=== PATIENT | male | born 1945 | race Caucasian/White ===

== ENCOUNTER 2016-05-11 09:05 | Observation (INO) | payer OTHER ==
[~2016-05-11] VITALS: Ht 177.8 cm; Wt 101.7 kg
[~2016-05-11 09:05] MED LIST: ASPIRIN325 MG PO; CRESTOR20 MG PO; IRBESARTAN150 MG PO; METOPROLOL SUCC25 MG PO; PLAVIX75 MG PO; VITAMIN D-32000 UNI2 PO
[2016-05-11 09:59] LABS: EOSINOPHIL (%) 1.6 % (0-5); EOSINOPHIL COUNT 0.1 K/uL (0-0.3); HEMATOCRIT 39.3 % (38.0-50.0); IMMATURE GRANULOCYTE (%) 0.2 % (0.0-0.7); INSTRUMENT ABS NEUTROPHIL CT 2.7 K/uL; LYMPHOCYTE COUNT 1.1 K/uL (1.0-2.8); MCH 30.6 PG (29.0-34.0); MCHC 33.1 G/DL (30.0-36.0); MCV 92.5 FL (86-99); MEAN PLAT.VOLUME 9.9 uM^3 (9.0-12.4); MONOCYTE (%) 11.9 % (3-12); MONOCYTE COUNT 0.5 K/uL (0-0.8); NEUTROPHIL (%) 61.3 % (45-76); NEUTROPHIL COUNT 2.7 K/uL (1.8-6.4); PLATELET COUNT 233 K/uL (156-360); RBC DIS.WIDTH-CV 12.6 % (11.8-14.6); RBC DIS.WIDTH-SD 42.6 % (39-53); RED BLOOD COUNT 4.25 M/uL (4.00-5.50); WHITE BLOOD COUNT 4.4 K/uL (4.1-10.2)
[2016-05-11 10:09] LABS: CHLORIDE 107 mEq/L (99-109); POTASSIUM 4.4 mEq/L (3.7-5.4); SODIUM 138 mEq/L (136-147)
[2016-05-11 10:12] LABS: GLUCOSE 100 mg/dL (70-99)
[2016-05-11 10:13] LABS: ANION GAP 7 MEQ/L (2-14)
[2016-05-11 10:14] LABS: TOTAL BILIRUBIN 0.7 mg/dL (0.0-1.0)
[2016-05-11 10:15] LABS: ALKALINE PHOSPHATASE 50 IU/L (3-129)
[2016-05-11 10:16] LABS: GFR ESTIMATE (CALCULATED) > 59 mL/min/
[2016-05-11 10:17] LABS: UREA NITROGEN (BUN) 17 mg/dL (9-23)
[2016-05-11 10:19] LABS: TROP-I INTERPRETATION NEGATIVE; TROPONIN-I < 0.01 ng/mL (0.0-0.30)
[2016-05-11] MEDS ORDERED: LOPRESSOR25 MG PO (11:16)
[2016-05-11] MEDS ORDERED: LO-DOSE ASPIRIN81 M2 PO (11:16)
[2016-05-11] MEDS ORDERED: VITAMIN D-32000 UNI2 PO (11:17)
[2016-05-11] MEDS ORDERED: METOPROLOL SUCC25 MG PO (13:49)
[2016-05-11 16:32] VITALS: BP 156/77
[2016-05-11 16:51] LABS: TROP-I INTERPRETATION NEGATIVE; TROPONIN-I 0.01 ng/mL (0.0-0.30)
[2016-05-11 20:24] VITALS: BP 152/64
[2016-05-11 21:30] VITALS: BP 150/66
[2016-05-11 22:44] LABS: TROP-I INTERPRETATION NEGATIVE; TROPONIN-I 0.01 ng/mL (0.0-0.30)
[2016-05-11 23:48] VITALS: BP 187/92
[2016-05-12 01:23] LABS: ADD MIUA? NO; BILIRUBIN NEGATIVE; BLOOD NEGATIVE; COLOR STRAW ((YELLOW)); GLUCOSE (STRIP) NEGATIVE; KETONES NEGATIVE; LEUKOCYTES NEGATIVE; NITRITE NEGATIVE; PROTEIN (STRIP) NEGATIVE; SPECIFIC GRAVITY 1.008 (1.000-1.030); UCUL ADDED? NO; UROBILINOGEN 0.2 MG/DL (0.2-1.0)
[2016-05-12 03:34] VITALS: BP 136/78
[2016-05-12 09:12] VITALS: BP 118/77
[2016-05-12 12:52] VITALS: BP 141/77
== END 2016-05-12 13:08 | disposition home or self-care (01) ==
LOC: EME → EDBD 09:05 → EDOF 10:53 → 5WEST 15:56
PROVIDERS: Emergency Medicine; Internal Medicine; Physician Assistant Medical
DX: R42 Dizziness and giddiness (principal); I65.29 Occlusion and stenosis of unspecified carotid artery; I10 Essential (primary) hypertension; E78.5 Hyperlipidemia, unspecified; I25.10 Atherosclerotic heart disease of native coronary artery without angina pectoris; Z95.5 Presence of coronary angioplasty implant and graft; Z87.891 Personal history of nicotine dependence
CPT/HCPCS: 70450; 71020; 80053; 81003; 83880; 84484; 85025; 93005; 93880; 99281; 99284; G0378; J0360; J1650